=== PATIENT | male | born 1960 | race Caucasian/White ===

== ENCOUNTER 2024-05-15 10:32 | Observation (INO) ==
[~2024-05-15 10:32] MED LIST: NS 0.45% 1000 ml BAG 1,000 ML IV SCH; Naloxone 0.4 mg VIAL 0.4 mg/ml 1 ml VIAL IV PRN; Ondansetron 4 mg VIAL 2 MG/ML 2 ml VIAL IV PRN; fentaNYL 100 mcg/2 ml 50 MCG/ML VIAL IV PRN
[2024-05-15] MEDS ORDERED: Tranexamic Acid 1 GM/100ML BAG 2,000 MG/200 ML BAG IV ONE (11:13)
[2024-05-15] MEDS ORDERED: ceFAZolin 2 GM in NS PREMIX 2 GM/100 ML BAG IVPB ONE (11:14)
[2024-05-15 11:26] LABS: Rapid COVID-19 Molecular Undetected (Undetected)
[2024-05-15] MEDS ORDERED: Dexamethasone IV 4 MG/ML VIAL 1 ml VIAL ONE (11:31)
[2024-05-15] MEDS ORDERED: Propofol 10 MG/ML 20 ML BTL ONE ×2 (11:31→15:14)
[2024-05-15] MEDS ORDERED: Lidocaine 2% PF 5 ML VIAL ONE (11:31)
[2024-05-15] MEDS ORDERED: fentaNYL 250 mcg/5 ml 50 MCG/ML 5 ml VIAL (250 MCG) ONE (11:31)
[2024-05-15] MEDS ORDERED: Ondansetron 4 mg VIAL 2 MG/ML 2 ml VIAL ONE (11:31)
[2024-05-15] MEDS ORDERED: Midazolam 2 mg/2 ml VIAL 1 mg/ml 2 ml VIAL (2 mg) ONE ×2 (11:31→13:28)
[2024-05-15] MEDS: Lactated Ringers 1000 ml BAG 1,000 ML IV SCH ×2 (11:33→22:41)
[2024-05-15] MEDS ORDERED: fentaNYL 100 mcg/2 ml 50 MCG/ML VIAL ONE ×3 (11:38→15:57)
[2024-05-15 12:31] LABS: Calcium 9.3 mg/dL (8.6-10.3); Creatinine, Serum 0.8 mg/dL (0.67-1.17); Potassium 4.4 mmol/L (3.5-5.0); eGFR CKD-EPI 98.2 (>60)
[2024-05-15] MEDS ORDERED: ROPIVACAINE 5 MG/ML 30 ML BTL (0.5%) ONE ×2 (13:28→13:41)
[2024-05-15] MEDS ORDERED: Ondansetron ODT 4 mg TAB 4 MG TAB PO PRN (14:52)
[2024-05-15] MEDS ORDERED: Ondansetron 4 mg VIAL 2 MG/ML 2 ml VIAL IV PRN (14:52)
[2024-05-15] MEDS ORDERED: Morphine 2 MG/ML SYRINGE IV PRN (14:52)
[2024-05-15] MEDS ORDERED: Magnesium Hydroxide LIQ 30 ML UDC PO PRN (14:52)
[2024-05-15] MEDS ORDERED: Lactulose 30 ml UDC PO PRN (14:52)
[2024-05-15] MEDS ORDERED: Calcium Carb (TUMS) 500 mg CHEW TAB PO PRN (14:52)
[2024-05-15] MEDS: Acetaminophen IV 1 GM/100ML 1,000 MG/100 ML BAG IV ONE (20:41)
[2024-05-15] MEDS: Buffered Lidocaine 1% SYRIN 1 ml INTRADERM ONE (20:41)
[2024-05-15] MEDS: Magnesium Hydroxide LIQ 30 ML UDC PO SCH (21:40)
[2024-05-15] MEDS: ceFAZolin 2 GM in NS PREMIX 2 GM/100 ML BAG IVPB SCH (22:41)
[2024-05-16 06:18] LABS: Hematocrit 35.9 % (38-53); Hemoglobin 12.2 g/dL (13.2-16.3); Mean Platelet Volume 8.1 fL (7.5-11.2); Platelet Count 256 10^3/uL (150-450)
[2024-05-16 06:37] LABS: Calcium 8.7 mg/dL (8.6-10.3); Creatinine, Serum 0.8 mg/dL (0.67-1.17); Potassium 5.2 mmol/L (3.5-5.0); eGFR CKD-EPI 98.2 (>60)
[2024-05-16] MEDS: Vitamin THERAPEUTIC TAB PO SCH (09:49)
== END 2024-05-16 14:55 | disposition home or self-care (01) ==
LOC: OR 10:32 → SSU 10:32
PROVIDERS: ADMIT Orthopaedic Surgery Adult Reconstructive Orthopaedic Surgery; ATTEND Orthopaedic Surgery Adult Reconstructive Orthopaedic Surgery